=== PATIENT | male | born 1980 | race Caucasian/White ===

== ENCOUNTER 2017-05-15 17:29 | Emergency (ER) | payer OTHER ==
[~2017-05-15] VITALS: Ht 185.4 cm; Wt 79.4 kg
[2017-05-15] MEDS ORDERED: Norco 5-325 Ta1 EACH PO (21:47)
== END 2017-05-15 22:33 | disposition home or self-care (01) ==
LOC: ER 17:29
DX: S62.512A Displaced fracture of proximal phalanx of left thumb, initial encounter for closed fracture (principal); F17.200 Nicotine dependence, unspecified, uncomplicated; Y04.8XXA Assault by other bodily force, initial encounter
CPT/HCPCS: 29125; 70450; 71100; 73030; 73130; 90714; 99284